=== PATIENT | female | born 1975 | race Caucasian/White ===

== ENCOUNTER 2019-01-12 03:42 | Emergency (ER) | payer MEDICAID, OTHER ==
[~2019-01-12] VITALS: Ht 147.3 cm; Wt 78.0 kg
[2019-01-12] MEDS ORDERED: MECLIZINE 25MG TABLET PO ONE (06:30)
[2019-01-12] MEDS ORDERED: ONDANSETRON HCL 4MG/2ML INJ IV ONE (06:30)
[2019-01-12] MEDS ORDERED: SODIUM CHLORIDE 0.9% 1,000 ML IV ONE (06:40)
[2019-01-12 07:05] LABS: BASOPHILS % 0.5 % (0.0-2.0); HEMATOCRIT. 39.6 % (36.0-48.0); LYMPHOCYTES % 34.3 % (20.0-50.0); MEAN CORPUSCULAR HEMOGLOBIN 28.9 pg (28.0-32.0); MEAN CORPUSCULAR VOLUME 87.6 fL (81.0-99.0); MEAN PLATELET VOLUME 9.1 fl (7.4-10.4); MONOCYTES % 7.1 % (2.0-8.0); NEUTROPHILS % 55.1 % (40.0-76.0); PLATELET 273 x1000/uL (130-400); RED BLOOD CELL COUNT 4.52 mill/uL (4.2-5.4)
[2019-01-12 07:06] LABS: CHLORIDE 106 mEq/L (98-107)
[2019-01-12 07:26] LABS: CLARITY URINE CLEAR (CLEAR); COLOR URINE YELLOW (YELLOW); KETONES URINE NEGATIVE (NEGATIVE); LEUKOCYTE ESTERASE URINE NEGATIVE (NEGATIVE); NITRITE URINE NEGATIVE (NEGATIVE); OCCULT BLOOD URINE NEGATIVE (NEGATIVE); PROTEIN URINE NEGATIVE (NEGATIVE); SPECIFIC GRAVITY URINE 1.015 (1.005-1.030); UROBILINOGEN URINE 0.2 E.U./dL (0.2-1.0)
[2019-01-12] MEDS ORDERED: KETOROLAC 30MG/ML VIAL IV ONE (07:45)
[2019-01-12 09:29] VITALS: BP 102/67
== END 2019-01-12 09:21 | disposition home or self-care (01) ==
LOC: ER 03:42
DX: R42 Dizziness and giddiness (principal); J45.909 Unspecified asthma, uncomplicated; F17.200 Nicotine dependence, unspecified, uncomplicated
CPT/HCPCS: 36415; 80053; 81003; 81025; 85025; 85610; 96361; 96374; 99283; J2405; J7030; J8597